=== PATIENT | male | born 1985 | race Caucasian/White ===

== ENCOUNTER → 2018-08-31 13:35 | Outpatient (CLI) | payer OTHER, SELFPAY ==
--- NOTE | 2018-08-31 | DI.MRI.S_ITS ---
PROCEDURE: MR ANKLE RT WO CON INDICATIONS: RIGHT ANKLE PAIN TECHNIQUE: Noncontrast sagittal T1 spin echo and T2 fast spin echo with fat saturation, axial proton density fast spin echo and T2 fast spin echo with fat saturation, coronal T1 spin echo and T2 fast spin echo with fat saturation through the ankle/hindfoot. COMPARISON: None. FINDINGS: Image quality: Diagnostic. Bones and joints: There is no acute fracture, dislocation, suspicious osseous lesion, or evidence of avascular necrosis. The ankle mortise is well-maintained. No osteochondral defects are identified. No significant degenerative changes of the midfoot or hindfoot joints are present. No significant joint effusions are present. Medial structures: The deltoid ligament and the spring ligament are intact. There is mild thickening and minimal increased signal involving the posterior tibialis tendon at the level of the navicular without a focal tear or partial thickness tear evident. Small amount of fluid is contained within its corresponding tendon sheath. The flexor digitorum longus and flexor hallucis longus tendons are intact and otherwise within normal limits. The posterior tibial nerve through the region of the tarsal tunnel is normal in size and signal. Lateral structures: The anterior and posterior distal tibiofibular ligaments are moderately heterogeneous, which may be related to scarring. There may be partial thickness tearing involving the anterior distal tibiofibular ligament. No complete tear is evident. Marked study and heterogeneity of the anterior talofibular ligament also may be related to partial thickness injury, which may be chronic. There is heterogeneity of the posterior talofibular ligament with slight increased signal noted. The calcaneofibular ligament is thickened, but intact. There is flattening of the peroneus brevis tendon along the posterior margin of the lateral malleolus with slight increased signal noted. The peroneus brevis tendon demonstrates minimal increased signal just beyond the tip of the lateral malleolus. No significant tearing of these tendons is identified. Normal fatty signal is seen within the sinus tarsi. Anterior structures: The tibialis anterior, extensor hallucis longus, and extensor digitorum longus tendons appear intact. Posterior and plantar structures: There is mild increased signal identified involving the distal margin of the Achilles tendon. There is also slight increased signal involving the distal soleus muscle at the myotendinous junction. No significant tearing is evident. Medial and lateral bands of the plantar fascia are of normal thickness. Subtle areas of susceptibility artifact on the skin involving the plantar aspect of the foot may be related to punctate metallic densities within the skin versus overlying clothing material. No definitive foreign bodies are evident. IMPRESSION: 1. Mild tibialis posterior tendinopathy and with corresponding tenosynovitis. No significant tearing. 2. Possible chronic partial thickness tearing involving the anterior talofibular ligament and the anterior distal tibiofibular ligament. No full-thickness tears. There may be a sprain of the posterior talofibular ligament. 3. Mild peroneus brevis and peroneus longus tendinopathy. 4. Minimal Achilles tendinopathy. Dictated by: Miky Puentes M.D. on 08/31/2018 at 15:34 Approved by: Miky Puentes M.D. on 08/31/2018 at 15:42
== END ==
PROVIDERS: Visit Provider Podiatrist
DX: M25.571 Pain in right ankle and joints of right foot (principal); M65.871 Other synovitis and tenosynovitis, right ankle and foot
CPT/HCPCS: 73721